=== PATIENT | female | born 2000 | race Caucasian/White ===

== ENCOUNTER 2024-08-27 15:50 | Emergency (ER) | payer MEDICAID ==
[~2024-08-27] VITALS: Ht 167.6 cm; Wt 83.0 kg
[2024-08-27 16:06] VITALS: O2SAT 100
[2024-08-27] MEDS: ACETAMINOPHEN 325MG TABLET PO ONE (19:03)
[2024-08-27] MEDS ORDERED: LIDO700A15 TP (19:05)
[2024-08-27] MEDS ORDERED: ACET-2708 MT (19:05)
[2024-08-27 19:45] VITALS: BP 111/67; PULSE 71; RESP 20; TEMP 36.7; O2SAT 99
== END 2024-08-27 19:50 | disposition home or self-care (01) ==
LOC: ER 15:50
DX: M25.562 Pain in left knee (principal)
CPT/HCPCS: 73564; 81025; 99283